=== PATIENT | female | born 1975 | race Hispanic/Latino ===

== ENCOUNTER 2019-05-30 20:17 | Emergency (ER) | payer OTHER ==
[2019-05-30 20:36] VITALS: O2SAT 98
[2019-05-30] MEDS ORDERED: IBUPROFEN 200 MG TAB PO ONE (20:43)
--- NOTE | 2019-05-30 21:19 | RAD ---
EXAM: XR Pelvis, 1 or 2 Views CLINICAL HISTORY: 43 years old Female; fall with 1 mo rt hip pain with sciatica. TECHNIQUE: Frontal view of the pelvis. COMPARISON: No relevant prior studies available. FINDINGS: LIMITATIONS: Study provided limited as only a single view of the pelvis is provided. BONES/JOINTS: No acute fracture seen. Normal bony alignment. SOFT TISSUES: No acute soft tissue abnormality identified. No radiopaque foreign body seen. IMPRESSION: - No acute fracture seen. - Study provided limited as only a single view of the pelvis is provided. Thank you for allowing us to participate in the care of this patient. Electronically signed by: Mark Montoya MD 05/30/2019 9:18 PM [employer]
--- NOTE | 2019-05-30 21:24 | RAD ---
EXAM: XR Right Hip, 2 Views CLINICAL HISTORY: 43 years old Female; fall with 1 mo rt hip pain with sciatica. TECHNIQUE: Frontal and frog-leg views of the right hip. COMPARISON: No relevant prior studies available. FINDINGS: BONES/JOINTS: No acute fracture seen. Small amount of a calcific density noted superior to the greater trochanter of the right femur may relate to calcific tendinitis. Normal bony alignment. SOFT TISSUES: No acute soft tissue abnormality identified. No radiopaque foreign body seen. IMPRESSION: - No acute fracture seen. - Small amount of a calcific density noted superior to the greater trochanter of the right femur may relate to calcific tendinitis. Clinical correlation is suggested. Thank you for allowing us to participate in the care of this patient. Electronically signed by: Mark Montoya MD 05/30/2019 9:22 PM [facility]
[2019-05-30] MEDS ORDERED: predniSONE 20 MG TAB PO ONE (21:25)
[2019-05-30] MEDS ORDERED: HYDROcodone 7.5MG/APAP 325MG 1 EA TAB PO ONE (21:25)
--- NOTE | 2019-05-30 21:33 | ED.PDOC ---
History of Present Illness - General Chief Complaint: Back Pain or Injury Stated Complaint: right hip pain radiating down right leg Time Seen by Provider: 05/30/19 20:25 Source: patient Exam Limitations: no limitations - History of Present Illness Initial Comments: the patient is a 43-year-old female presenting to the emergency room secondary to right hip pain with occasional sciatica. Pain started about a month ago after she accidentally fell. She has been ambulatory on it since but the pain does get worse after she is still for a while. She apparently drove [place] [address] a ways andthat seemed to cause a recent flare. No lacerations. The patient reports that over the last 24 hours she is felt a little bit flushed and feverish. She actually does have a mild cough and a mild runny nose. No low back pain. Pain seems to start at the hip and buttock area.pain extends primarily around from the right buttock to the right lateral hip over the greater trochanter down the lateral aspect of the leg. No pain in the calf. No obvious swelling. No palpable cords. Timing/Duration: other - one month Severity: moderate Improving Factors: movement Worsening Factors: immobilization Associated Symptoms: denies symptoms Allergies/Adverse Reactions: Allergies NO KNOWN ALLERGY Allergy (Verified 05/30/19 20:36) Home Medications: Ambulatory Orders Cyclobenzaprine HCl [Flexeril] 5 mg PO TID PRN #30 tab 05/30/19 predniSONE [Prednisone] 20 mg PO DAILY #7 tab 05/30/19 Review of Systems - Review of Systems Constitutional: States: no symptoms reported EENTM: States: nose congestion Respiratory: States: cough Cardiology: States: no symptoms reported Gastrointestinal/Abdominal: States: no symptoms reported Genitourinary: States: no symptoms reported Musculoskeletal: States: see HPI Skin: States: no symptoms reported Neurological: States: see HPI Endocrine: States: no symptoms reported All other Systems: No Change from Baseline Past Medical History (General) - Patient Medical History Hx Seizures: No Hx Stroke: No Hx Dementia: No Hx Asthma: No Hx of COPD: No Hx Cardiac Disorders: No Hx Congestive Heart Failure: No Hx Pacemaker: No Hx Hypertension: No Hx Thyroid Disease: No Hx Diabetes: No Hx Gastroesophageal Reflux: No Hx Renal Disease: No Hx Cancer: No Hx of HIV: No Hx Hepatitis C: No Hx MRSA: No Surgical History: cholecystectomy, Hysterectomy Family Medical History - Family History Mother Family History: Unknown Physical Exam - Physical Exam General Appearance: Alert, No apparent distress Eye Exam: bilateral normal Ears, Nose, Throat: hearing grossly normal, nasal congestion Neck: full range of motion, supple Respiratory: lungs clear, normal breath sounds, no respiratory distress, no accessory muscle use Cardiovascular/Chest: normal peripheral pulses, regular rate, rhythm, no edema Peripheral Pulses: dorsalis pedis,right: 2+, dorsalis pedis,left: 2+, posterior tibialis,right: 2+, posterior tibialis,left: 2+ Gastrointestinal/Abdominal: non tender - moderately obese, soft Rectal Exam: deferred Back Exam: no CVA tenderness, no vertebral tenderness Extremity: normal range of motion, no calf tenderness, normal capillary refill, other - see history of present illness. No pain at the knee. Neurologic: pan dumper II-XII nml as tested, alert, normal mood/affect, oriented x 3 Skin Exam: normal color Comments: Vital Signs - 24 hr 05/30/19 05/30/19 20:26 21:14 Temperature 99.8 F H Pulse Rate [ 91 H 75 monitor] Respiratory 18 16 Rate Blood Pressure 134/86 97/70 [Left Arm] O2 Sat by Pulse 98 98 Oximetry Progress - Progress Progress: 05/30/19 21:35 the patient's a 43-year-old female presenting to the emergency room secondary to a months worth of progressive right hip pain with some intermittent sciatica. I believe the patient has a bursitis of the greater trochanter and piriformis syndrome on that side from the fall. she is going to be placed on low-dose prednisone for the next week. Additionally she will be written for some Flexeril for as needed use as a muscle relaxer. Most importantly she needs to do stretching exercises. Topical heat in the form of a heat pad or icy hot or Biofreeze may also help. ER warnings were given for any significant worsening. The patient also has a mild temperature elevation. She did test negative for influenza. I would not be surprised if she develops more mild upper respiratory tract symptoms over the next few days. Preston will help withboth issues as well. [email or web address] [id number] - Results/Orders Results/Orders: x-ray of the pelvis and right hip show no obvious significant fracture or dislocation. There is a small calcific density just superior to the tip of the greater trochanter that is likely a calcific tendinitis. Rapid flu is negative. Departure - Departure Clinical Impression: Piriformis syndrome of right side, Greater trochanteric bursitis of right hip Disposition: Discharge to Home or Self Care Condition: Fair Departure Forms: ED Discharge - Pt. Copy, Patient Portal Self Enrollment Instructions: DI for Back Pain With Sciatica, Hip Bursitis (DC) Diet: regular diet Activity: increase activity as tolerated Prescriptions: Cyclobenzaprine HCl [Flexeril] 5 mg PO TID PRN #30 tab PRN Reason: Muscle Spasms predniSONE [Prednisone] 20 mg PO DAILY #7 tab Home Medications: Ambulatory Orders Cyclobenzaprine HCl [Flexeril] 5 mg PO TID PRN #30 tab 05/30/19 predniSONE [Prednisone] 20 mg PO DAILY #7 tab 05/30/19 Additional Instructions: the patient's a 43-year-old female presenting to the emergency room secondary to a months worth of progressive right hip pain with some intermittent sciatica. I believe the patient has a bursitis of the greater trochanter and piriformis syndrome on that side from the fall. she is going to be placed on low-dose prednisone for the next week. Additionally she will be written for some Flexeril for as needed use as a muscle relaxer. Most importantly she needs to do stretching exercises. Topical heat in the form of a heat pad or icy hot or Biofreeze may also help. ER warnings were given for any significant worsening. The patient also has a mild temperature elevation. She did test negative for influenza. I would not be surprised if she develops more mild upper respiratory tract symptoms over the next few days. Preston will help withboth issues as well. Print Language: Scottish
[2019-05-30 22:23] VITALS: BP 97/65; TEMP 97.2
== END 2019-05-30 21:46 | disposition home or self-care (01) ==
LOC: ER 20:17
DX: G57.01 Lesion of sciatic nerve, right lower limb (principal); M70.61 Trochanteric bursitis, right hip
CPT/HCPCS: 72170; 73502; 87502; J7512